=== PATIENT | female | born 1960 | race Caucasian/White ===

== ENCOUNTER 2017-07-05 14:57 | Outpatient (CLI) | payer OTHER ==
--- NOTE | 2017-07-05 16:31 | ULT ---
VENOUS DUPLEX SONOGRAM RIGHT LOWER EXTREMITY 07/05/17 HISTORY: Right leg pain and edema. FINDINGS: The right common femoral vein and greater saphenous junction were evaluated along with the femoral, d eep femoral, popliteal, and posterior tibial veins. There is good color and spectral doppler flow, co mpression, and augmentation. IMPRESSION: No sonographic evidence of DVT within the right lower extremity. POS: DARRYN
== END 2017-07-05 14:58 | disposition home or self-care (01) ==
LOC: ULT 14:57
DX: I82.401 Acute embolism and thrombosis of unspecified deep veins of right lower extremity (principal)

== ENCOUNTER 2018-02-08 15:01 | Outpatient (CLI) | payer OTHER | END 2018-02-08 15:02 | disposition home or self-care (01) | LOC: BICMAMMO 15:01 | PROVIDERS: ATTEND Obstetrics & Gynecology | DX: Z12.31 Encounter for screening mammogram for malignant neoplasm of breast (principal); R92.1 Mammographic calcification found on diagnostic imaging of breast | CPT/HCPCS: 77063; 77067 ==

== ENCOUNTER 2019-02-03 13:13 | Outpatient (CLI) | payer OTHER ==
--- NOTE | 2019-02-03 14:18 | RAD ---
XR Hip Rt 2-3 View HISTORY: Right hip pain. COMPARISON: None. FINDINGS: There is mild osteophytic lipping along the acetabulum without significant joint space narr owing no fracture or other findings. IMPRESSION: Minimal arthritic changes of the hip.
--- NOTE | 2019-02-03 14:18 | RAD ---
XR Hip Lt 2-3 View HISTORY: Left hip pain COMPARISON: None. FINDINGS: Some mild osteophytic lipping of the acetabulum is noted without significant joint space na rrowing. Minimal osteophytic change along the femoral head neck junction. IMPRESSION: Minimal arthritic changes of the left hip.
--- NOTE | 2019-02-03 14:24 | RAD ---
Lumbar spine series including weight bearing flexion and extension views. HISTORY: Back pain radiating into left hip. COMPARISON: None. FINDINGS: The vertebral bodies are normal in height. No significant disc space narrowing is seen. Mil d facet hypertrophic changes of the lower lumbar spine are noted. No abnormal motion is seen on the flexion and extension views. Vascular calcifications are present. IMPRESSION: Mild degenerative facet changes of the lower lumbar spine.
== END 2019-02-03 13:14 | disposition home or self-care (01) ==
LOC: BICRAD 13:13
DX: M54.5 Low back pain (principal); M25.552 Pain in left hip; M47.816 Spondylosis without myelopathy or radiculopathy, lumbar region; M16.0 Bilateral primary osteoarthritis of hip
CPT/HCPCS: 72100

== ENCOUNTER 2019-02-21 11:25 | Outpatient (CLI) | payer OTHER ==
--- NOTE | 2019-02-21 11:49 | RAD ---
EXAM: Chest 2 views: HISTORY: Cough COMPARISON: None. FINDINGS: There is a normal-sized cardiomediastinal silhouette. Atherosclerotic callus cages are seen in the a kenny. There is no evidence of consolidation, mass, or pleural effusion. The bones are unremarkable. IMPRESSION: No evidence of acute cardiopulmonary disease
== END 2019-02-21 11:26 | disposition home or self-care (01) ==
LOC: BICRAD 11:25
PROVIDERS: ATTEND Preventive Medicine Medical Toxicology
DX: R05 Cough (principal)
CPT/HCPCS: 71046

== ENCOUNTER 2021-07-01 14:25 | Outpatient (CLI) | payer BC | END 2021-07-01 14:26 | disposition home or self-care (01) | LOC: BICMAMMO 14:25 | PROVIDERS: ATTEND Family Medicine | DX: Z12.31 Encounter for screening mammogram for malignant neoplasm of breast (principal); Z13.820 Encounter for screening for osteoporosis; M85.89 Other specified disorders of bone density and structure, multiple sites; Z78.0 Asymptomatic menopausal state; Z91.89 Other specified personal risk factors, not elsewhere classified | CPT/HCPCS: 77063; 77067; 77080 ==

== ENCOUNTER 2021-10-21 10:03 | Outpatient (CLI) | payer BC | END 2021-10-21 10:04 | disposition home or self-care (01) | LOC: BICULT 10:03 | PROVIDERS: ATTEND Family Medicine | DX: I10 Essential (primary) hypertension (principal) | CPT/HCPCS: 76770; 93975 ==

== ENCOUNTER 2021-10-26 08:28 | Outpatient (CLI) | payer BC ==
[2021-10-26] MEDS ORDERED: Iopamidol 370 76% 100 ML VIAL ONE (11:10)
== END 2021-10-26 08:29 | disposition home or self-care (01) ==
LOC: CT 08:28
PROVIDERS: ATTEND Family Medicine
DX: I15.0 Renovascular hypertension (principal); I70.1 Atherosclerosis of renal artery
CPT/HCPCS: 74175; 82565; Q9967

== ENCOUNTER 2022-05-29 13:49 | Day surgery (SDC) | payer BC ==
[2022-05-29] MEDS ORDERED: fentaNYL PF 100 MCG/2 ML SYRINGE ONE (14:16)
[2022-05-29] MEDS ORDERED: Propofol 1,000 MG/100 ML VIAL IV ONE (14:16)
[2022-05-29] MEDS ORDERED: Midazolam HCl 2 mg/2 ml Vial ONE (14:28)
[2022-05-29] MEDS ORDERED: diphenhydrAMINE 50 MG/ML VIAL ONE (14:47)
[2022-05-29] MEDS ORDERED: Dexamethasone 20 MG/5 ML VIAL ONE (14:47)
[2022-05-29] MEDS ORDERED: Succinylcholine Chloride 100 MG/5 ML SYRINGE FS ONE (14:47)
[2022-05-29] MEDS ORDERED: PHENYLEPHRINE-NS 100 MCG/ML 10 ML SYRINGE ONE (14:47)
[2022-05-29] MEDS ORDERED: PROPOFOL 200 MG/20 ML VIAL ONE (14:47)
[2022-05-29] MEDS ORDERED: Lidocaine 1% PF 5 ML VIAL ONE (14:47)
== END 2022-05-29 16:47 | disposition home or self-care (01) ==
LOC: SDC 13:49
PROVIDERS: ATTEND Urology
PROC: 0T778DZ Dilation of Left Ureter with Intraluminal Device, Via Natural or Artificial Opening Endoscopic (ICD-10-PCS; principal; 2022-05-29)
DX: N13.6 Pyonephrosis (principal); Q52.5 Fusion of labia; R10.2 Pelvic and perineal pain; I10 Essential (primary) hypertension; Z79.899 Other long term (current) drug therapy; Z88.5 Allergy status to narcotic agent; Z88.8 Allergy status to other drugs, medicaments and biological substances; Z91.048 Other nonmedicinal substance allergy status
CPT/HCPCS: C2617; J1100; J1200; J2250; J2704

== ENCOUNTER 2025-01-27 15:26 | Outpatient (CLI) | payer BC | END 2025-01-27 15:27 | disposition home or self-care (01) | LOC: BICMAMMO 15:26 | PROVIDERS: ATTEND Family Medicine | DX: Z12.31 Encounter for screening mammogram for malignant neoplasm of breast (principal); Z91.89 Other specified personal risk factors, not elsewhere classified; M85.89 Other specified disorders of bone density and structure, multiple sites | CPT/HCPCS: 77063; 77067; 77080 ==